=== PATIENT | female | born 1960 | race Caucasian/White ===

== ENCOUNTER 2024-01-26 15:07 | Emergency (ER) | payer OTHER ==
--- NOTE | 2024-01-26 16:14 | ED Physician Documentation ---
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 Also has a productive cough. Sounds like her physician sent her here for sinus imaging with concern for recurrence of prior tumor. PD PAST MEDICAL HISTORY - Past Medical History Past Medical History: Yes Cardiovascular: Deep vein thrombosis, Pulmonary embolism, Arrhythmia, Other Respiratory: Asthma Neuro: None Endocrine/Autoimmune: None GI: Other [employer]: None : None Psych: None Musculoskeletal: None Derm: None Other Past Medical History: sinus tumor - Past Surgical History Past Surgical History: Yes Cardiovascular: Pacemaker HEENT: Other - Present Medications Home Medications: Ambulatory Orders Medication Instructions Recorded Confirmed Albuterol Sulf [Ventolin Hfa 1 - 2 puffs INH Q4HR PRN 01/26/24 01/26/24 Inhaler] Fluticasone/Vilanterol [Breo 1 each IH DAILY 01/26/24 01/26/24 Ellipta 200-25 Mcg INH] Rivaroxaban [Xarelto] 0 mg PO DAILY 01/26/24 01/26/24 - Allergies Allergies/Adverse Reactions: Allergies Allergy/AdvReac Type Severity Reaction Status Date / Time No Known Drug Allergies Allergy Verified 01/26/24 15:11 - Social History Does the pt smoke?: No Smoking Status: Never smoker Does the pt drink ETOH?: Yes ETOH Use: Wine Does the pt have substance abuse?: No - Immunizations Immunizations are current?: Yes - POLST Patient has POLST: No PD ED PE NORMAL - Vitals Vital signs reviewed: Yes - General General: Alert and oriented X 3, No acute distress - HEENT HEENT: PERRL, EOMI, Pharynx benign, Other (Swollen nasal mucosa, normal TMs, clear rhinorrhea) - Cardiac Cardiac: RRR, No murmur - Respiratory Respiratory: Other (Mild expiratory wheezes, nonlabored) - Neuro Neuro: Alert and oriented X 3 Results - Vitals Vitals: Vital Signs - 24 hr 01/26/24 01/26/24 01/26/24 15:12 16:26 16:48 Temperature 36.6 C Heart Rate 61 56 L 61 Respiratory 20 16 16 Rate Blood Pressure 150/89 H 114/81 H O2 Saturation 99 100 Oxygen O2 Source Room air - Rads (name of study) CT Sinus scan Relevant Findings:: Final report received, EMP independent interpretation of test PD Medical Decision Making - ED course ED course: 63-year-old woman with recalcitrant sinusitis symptoms. She was sent here by her PCP I think for imaging to rule out a recurrent mass. The CT sinus was done and I do not see a mass on it. She was discharged pending formal read encouraged to look up the results in the portal and follow-up with her ENT. She declined third round of antibiotics. Subsequently her CT came back as "pansinusitis with consideration for fungal sinusitis." Fungal sinusitis of course is rare outside of folks with profound immune compromise. I find this unlikely given that she is otherwise relatively healthy but has been on steroids lately both oral and topical. I called and spoke with pt, I discussed with her that CT really was neither sensitive nor specific for fungal sinusitis and she really did need a tissue diagnosis karyn. Encouraged her to call her ENT on Sunday letting them know that this was a concern to expedite her visit. Departure - Departure Disposition: Home, Self Care Clinical Impression: Sinusitis Qualifiers: Sinusitis location: maxillary Chronicity: acute Recurrence: recurrent Qualified Code(s): J01.01 - Acute recurrent maxillary sinusitis Condition: Good Record reviewed to determine appropriate education?: Yes Instructions: ED Sinusitis No Abx Comments: As discussed, my view of the CT is that you have persistent sinusitis but I do not see a mass or tumor. You we will be able to look up these results in short order in the patient portal when you go to the hospital website at [email or web address]. Follow-up with your ENT surgeon as you are planning. If you would like a closer option you could call: 1. [facility] at [phone] 2. [facility] in [place] At [phone] Forms: PCP List Discharge Date/Time: 01/26/24 18:07
[2024-01-26] MEDS: IPRATROPIUM/ALBUTEROL 3 ML NEB INH STA (16:26)
[2024-01-26 16:49] VITALS: BP 114/81; O2SAT 100
--- NOTE | 2024-01-26 18:14 | CT Report ---
PROCEDURE: Sinus INDICATIONS: sinusitis persistent, hx mass TECHNIQUE: Noncontrast thin section axial images acquired from the frontal sinuses to the mid-sella, with faustin l and sagittal reformats. For radiation dose reduction, the following was used: automated exposure c ontrol, adjustment of mA and/or kV according to patient size. COMPARISON: None. FINDINGS: Image quality: Excellent. Maxillary Sinuses: Air fluid levels throughout the bilateral maxillary sinuses with postsurgical givens ges of the medial maxillary wall drainage catheters which are widely patent. Ethmoid Air Cells: There is opacification of the bilateral anterior ethmoid air cells extending to t he left posterior ethmoid air cells. Sphenoid Sinuses: Mucosal thickening of the sphenoid sinus. Sphenoid septation inserts upon the righ t side near the carotid artery. Frontal Sinuses: Complete opacification of the frontal sinuses with opacification of left frontal et hmoidal recess. Mixed densities within the right frontal sinus could suggest viral etiologies. Ostiomeatal Complexes: Postsurgical changes of the maxillary drainage pathways with opacification of the residual maxillary drainage passageways Miscellaneous: Visualized intra-orbital contents are normal. No deo bullosa. No nasal septal d eviation. IMPRESSION: Pansinusitis disease with mixed densities within the right frontal and ethmoid sinuses concerning for fungal etiologies. Reviewed by: Miah Kruger MD on 01/26/2024 5:13 PM GIANA Approved by: Miah Kruger MD on 01/26/2024 5:13 PM GIANA Station ID: [id number]
== END 2024-01-26 18:07 | disposition home or self-care (01) ==
LOC: ED 15:07
DX: J01.01 Acute recurrent maxillary sinusitis (principal); J45.909 Unspecified asthma, uncomplicated; Z86.718 Personal history of other venous thrombosis and embolism; Z79.01 Long term (current) use of anticoagulants; Z95.0 Presence of cardiac pacemaker
CPT/HCPCS: 94640; 94664; 99283; 99284